=== PATIENT | female | born 1995 | race Caucasian/White ===

== ENCOUNTER 2016-07-07 10:25 | Inpatient (IN) | payer BC, MEDICAID ==
[~2016-07-07] VITALS: Ht 160 cm; Wt 101.8 kg
[~2016-07-07 10:25] MED LIST: MICONAZOLE VAG VG; PRENATAL1 TA7 PO
[2016-07-08] VITALS (10 sets, daily range): BP systolic 116–149; BP diastolic 76–87; PULSE 88–121; TEMP 98–98.4
[2016-07-08] MEDS ORDERED: ZOVIRAX400 MG PO (19:29)
[2016-07-08 20:57] LABS: BASO % 0.4 % (0.0-2.0); EOS # 0.1 (0.0-0.7); EOS % 1.3 % (0-4.0); GRAN # 6.6 (1.4-6.5); GRAN % 64.7 % (42.2-75.2); HEMOGLOBIN 11.1 g/dl (12.5-16.0); LYMPH # 2.7 (1.2-3.4); LYMPH % 26.6 % (20.0-51.0); MEAN CELL VOLUME 83 fl (80.0-100.0); MEAN CORPUSCULAR HEMOGLOBIN 28 pg (27.0-31.0); MEAN CORPUSCULAR HGB CONC 34 g/dl (33.0-37.0); MEAN PLATELET VOLUME 12.8 fl (7.4-10.4); MONO # 0.7 (0.1-0.6); MONO % 6.4 % (1.7-9.3); PLATELET COUNT 154 K/mm3 (130-400); RED BLOOD COUNT 3.97 M/mm3 (4.10-5.30); REDCELL DISTRIBUTION WIDTH-CV 14.7 % (11.5-14.5); WHITE BLOOD COUNT 10.2 K/mm3 (4.8-10.8)
[2016-07-09] VITALS (55 sets, daily range): BP systolic 106–140; BP diastolic 59–88; PULSE 74–144; TEMP 98.2
[2016-07-09] MEDS ORDERED: IBU800 M1 PO (18:17)
[2016-07-09] MEDS ORDERED: PERCOCET 325 MG1 TA2 PO (18:18)
[2016-07-10 01:00] VITALS: BP 128/80; PULSE 93; TEMP 97.7
[2016-07-10 04:30] VITALS: BP 128/85; PULSE 90; TEMP 97.5
[2016-07-10 07:58] VITALS: BP 132/81; PULSE 79; TEMP 97.1
[2016-07-10 16:27] VITALS: BP 127/75; PULSE 91; TEMP 98.3
[2016-07-10 20:45] VITALS: BP 118/74; PULSE 97; TEMP 98.4
[2016-07-11 07:50] VITALS: BP 108/65; PULSE 80; TEMP 97.8
== END 2016-07-11 11:15 | disposition home or self-care (01) | DRG 767 ==
LOC: LDR 10:25 → OB 07-09 20:00
PROVIDERS: Obstetrics & Gynecology
PROC: 10E0XZZ Delivery of Products of Conception, External Approach (ICD-10-PCS; principal; 2016-07-09)
PROC: 10D17ZZ Extraction of Products of Conception, Retained, Via Natural or Artificial Opening (ICD-10-PCS; 2016-07-09)
PROC: 0UQMXZZ Repair Vulva, External Approach (ICD-10-PCS; 2016-07-09)
DX: O48.0 Post-term pregnancy (principal); O99.334 Smoking (tobacco) complicating childbirth; F17.210 Nicotine dependence, cigarettes, uncomplicated; O73.1 Retained portions of placenta and membranes, without hemorrhage; O70.0 First degree perineal laceration during delivery; O99.02 Anemia complicating childbirth; D64.9 Anemia, unspecified; Z3A.40 40 weeks gestation of pregnancy; Z37.0 Single live birth
CPT/HCPCS: J2210; J2590; J7120